=== PATIENT | female | born 1995 | race Caucasian/White ===

== ENCOUNTER → 2021-11-27 00:42 | Outpatient (CLI) | payer OTHER, SELFPAY ==
--- NOTE | 2021-11-27 06:45 | DI.US_ITS ---
Exam(s) US PELVIS TRANSVAGINAL EXAM: US PELVIS TRANSVAGINAL CLINICAL HISTORY: middle cycle pain, pelvic pain, R10.2 TECHNIQUE: Ultrasound of the pelvis was performed both transabdominal and transvaginal. COMPARISON: No exams were available for comparison FINDINGS: UTERUS: Measures 7.5 cm length x 3 cm AP x 4.6 cm wide. There are no uterine fibroids. Endometrial thickness measures 4 mm. There is no fluid in the endometrial canal. CERVIX: There are no obvious nabothian cysts. RIGHT OVARY: Measures 3.7 x 3.4 x 2.2 cm Contains follicular cysts measuring up to 1.1 cm LEFT OVARY: Measures 3.3 x 3.5 x 2.2 cm Contains follicular cysts measuring up to 1.3 cm CUL-DE-SAC: No free fluid evident. Incidentally noted is hydronephrosis of the right kidney due to a calculus at the right UPJ measuring 1.7 cm. Left kidney appears unremarkable IMPRESSION: 1. Normal appearing uterus and age-appropriate endometrium. 2. Follicular cysts in both ovaries, as described above. No free fluid 3. There is an obstructing calculus measuring 1.7 cm located at the right UPJ with hydronephrosis of the right kidney. This correspond to what is seen on the plain films. DATA REPOSITORY:
--- NOTE | 2021-11-27 09:46 | DI.RAD_ITS ---
Exam(s) XR ABDOMEN FLAT UPRIGHT EXAM: XR ABDOMEN FLAT UPRIGHT CLINICAL HISTORY: check stone - Calculus of Kidney - N20.0. TECHNIQUE: 2D digital imaging was performed. COMPARISON: No exams were available for comparison FINDINGS: Two views-supine and upright There is air seen throughout small and large bowel loops with some dilatation of bowel loops in left upper quadrant, difficult to determine if this is splenic flexure of the colon or dilated small bowel loops. Stomach is not overly distended. There is a vertically orientated oval calcification right of center at L2 level which measures 1.4 by 0.8 cm. This is either a calculus in the upper right ureter or possibly a gallstone. Can be furthe r studied with ultrasound or CT. Visualized lung bases are clear. IMPRESSION: There is a 14 x 8 millimeter right-sided calculus as described above, either in the upper right renal collecting system although cannot exclude possibly this represents a gallstone. Recommend follow-up ultrasound and/or CT scan. Air-filled bowel loops as described above. No obvious bowel obstruction. No free air. DATA REPOSITORY: RADIATION DOSE DELIVERED:
== END ==
PROVIDERS: PCP Internal Medicine; Visit Provider Obstetrics & Gynecology Gynecology
DX: R10.2 Pelvic and perineal pain (principal); N20.0 Calculus of kidney; N83.01 Follicular cyst of right ovary; N83.02 Follicular cyst of left ovary; N13.30 Unspecified hydronephrosis
CPT/HCPCS: 74019; 76830; 76856

== ENCOUNTER 2022-05-29 02:42 | Outpatient (CLI) | payer OTHER, SELFPAY ==
[2022-05-29 11:08] LABS: BUN 9 mg/dL (7-18); CREATININE 0.7 mg/dL (0.55-1.02); Calcium 9.5 mg/dL (8.5-10.1); Chloride 105 mmol/L (98-107); Estimated GFR 120.74 (mL/min/1.73m2); Glucose 85 mg/dL (74-106); Potassium 3.4 mmol/L (3.5-5.1); Sodium 141 mmol/L (136-145); Uric Acid 4.3 mg/dL (2.6-6.0)
[2022-05-29 20:04] LABS: Parathyroid Hormone,Intact 82 pg/mL (19-88)
== END 2022-05-29 02:43 | disposition home or self-care (01) ==
PROVIDERS: PCP Internal Medicine
DX: N20.0 Calculus of kidney (principal)
CPT/HCPCS: 36415; 80048; 83970; 84550

== ENCOUNTER 2023-11-19 08:44 | Outpatient (REF) | payer BC, SELFPAY ==
--- NOTE | 2023-11-19 08:15 | PAPFT_PTH ---
PATIENT: Anabelle Klein LOC: [facility] U#:[id number] AGE/SX: 28/F ROOM: RE11/19/[address]: Devi Das APRN : 1995 BED: DIS: 11/19/2023 SPEC #: [id number] RECD: 11/19/23 18:00 STATUS: NABOR JOLANTA #: [id number] ANJU: 11/19/23 08:[address]: Devi Das DEPT: [facility] Cytology RECD BY: Marci Shaffer ENTERED: 11/19/23 18:00 SP TYPE: PAPFT OTHR DR: Krystal Son APRN Tissues: 1 - CX/ENDOCX FOR PAP SMEARS Procedures: PAP THIN PREP/[facility] Screening HPV DNA PROBE Comments: [id number]
== END 2023-11-19 08:45 | disposition home or self-care (01) ==
LOC: LBN 08:44
PROVIDERS: PCP Nurse Practitioner Family; Visit Provider Nurse Practitioner
DX: Z12.4 Encounter for screening for malignant neoplasm of cervix (principal); Z11.51 Encounter for screening for human papillomavirus (HPV)
CPT/HCPCS: 88142; 87624

== ENCOUNTER 2024-01-01 05:08 | Outpatient (CLI) | payer BC, SELFPAY ==
[2024-01-01 09:28] LABS: Abs Immature Grans 0.01 10^3/uL (0.0-0.06); Absolute Basophil Count 0.05 10^3/uL (0.0-0.2); Absolute Eosinophil Count 0.09 10^3/uL (0.0-0.7); Absolute Monocyte Count 0.33 10^3/uL (0.1-0.8); Absolute Neutrophil Count 2.58 10^3/uL (1.2-6.7); Eosinophils % 1.7 %; HCT 41.3 % (36.0-46.0); HGB 13.8 g/dL (11.2-15.7); Immature Grans % 0.2 %; Lymphocytes % 40.7 %; MCH 31.7 pg (27.0-33.0); MCHC 33.4 % (32.0-36.0); MCV 95 fL (80-95); Monocytes % 6.4 %; Platelet Count 221 10^3/uL (130-400); RBC 4.36 10^6/uL (3.93-5.22); RDW 11.4 % (11.7-14.6); RDW-SD 39.6 fL; WBC 5.16 10^3/uL (4.4-10.8)
[2024-01-01 10:09] LABS: ALT 16 U/L (14-59); AST 12 U/L (15-37); Albumin 4.3 g/dL (3.4-5.0); Alkaline Phosphatase 72 U/L (46-116); Anion Gap 9.2 mmol/L (3-11); BUN 9 mg/dL (7-18); Bilirubin, Total 0.4 mg/dL (0.2-1.0); CO2 26.8 mmol/L (21.0-32.0); CREATININE 0.7 mg/dL (0.55-1.02); Calcium 8.9 mg/dL (8.5-10.1); Calculated LDL 93 mg/dL (<100); Chloride 106 mmol/L (98-107); Cholesterol 169 mg/dL (<200); Estimated GFR 119.24 (mL/min/1.73m2); Glucose 95 mg/dL (74-106); HDL Cholesterol 61 mg/dL (40-60); Potassium 3.2 mmol/L (3.5-5.1); Sodium 142 mmol/L (136-145); Total Protein 8.1 g/dL (6.4-8.2); Triglyceride 78 mg/dL (<150); Vitamin B12 254 pg/mL (193-986)
== END 2024-01-01 05:09 | disposition home or self-care (01) ==
LOC: LBO 05:08
PROVIDERS: PCP Nurse Practitioner Family; Referring Provider Nurse Practitioner; Visit Provider Nurse Practitioner
DX: Z13.220 Encounter for screening for lipoid disorders (principal); Z78.9 Other specified health status; J45.909 Unspecified asthma, uncomplicated
CPT/HCPCS: 36415; 80053; 80061; 82607; 85025